=== PATIENT | male | born 1930 | race African-American/Black ===

== ENCOUNTER → 2016-10-14 | Outpatient (CLI) | payer MEDICARE, OTHER | LOC: OD 08:55 | PROVIDERS: ATTEND Urology | DX: N40.0 Benign prostatic hyperplasia without lower urinary tract symptoms (principal) | CPT/HCPCS: 36415; 84153 ==

== ENCOUNTER → 2018-03-25 | Outpatient (CLI) | payer MEDICARE, OTHER ==
--- NOTE | 2018-03-25 16:00 | RADIOLOGY REPORT (SQ) ---
EXAM DESCRIPTION: CHEST PA/LATERAL COMPLETED DATE/TIME: 03/25/2018 3:48 pm REASON FOR STUDY: COUGH COMPARISON: 12/17/2008 EXAM PARAMETERS: NUMBER OF VIEWS: two views TECHNIQUE: Digital Frontal and Lateral radiographic views of the chest acquired. RADIATION DOSE: NA LIMITATIONS: none FINDINGS: LUNGS AND PLEURA: The lungs are hyperexpanded. There is no infiltrate or effusion. There is no mass. MEDIASTINUM AND HILAR STRUCTURES: No masses or contour abnormalities. HEART AND VASCULAR STRUCTURES: Heart size is normal. There is ectasia of the ascending aorta. BONES: No acute findings. HARDWARE: None in the chest. OTHER: No other significant finding. IMPRESSION: Chronic lung changes with no acute cardiopulmonary disease. There is ectasia of the asc ending aorta. TECHNICAL DOCUMENTATION: JOB ID: [id number] [employer]- All Rights Reserved Reading location - IP/workstation name: [email or web address]
== END ==
LOC: OD 15:31
PROVIDERS: ATTEND Family Medicine
DX: I77.819 Aortic ectasia, unspecified site (principal); R05 Cough
CPT/HCPCS: 71046

== ENCOUNTER → 2018-04-27 | Outpatient (CLI) | payer MEDICARE, OTHER ==
--- NOTE | 2018-04-27 12:30 | RADIOLOGY REPORT (SQ) ---
EXAM DESCRIPTION: CT ABD/PELVIS COMBO COMPLETED DATE/TIME: 04/27/2018 9:42 am REASON FOR STUDY: GROSS HEMATURIA (R31.0), BPH (N40.0), URINARY INCONTINENCE (R32) R31.0 GROSS LEO TURIA N40.0 BENIGN PROSTATIC HYPERPLASIA WITHOUT LOWER URINRY TRAC R32 UNSPECIFIED URINARY INCONTIN ENCE COMPARISON: None. TECHNIQUE: CT scan of the abdomen and pelvis performed with and without intravenous contrast, and wi thout oral contrast. Contrasted imaging performed helical scanning technique and dynamic intravenous contrast injection. Images reviewed with lung, soft tissue, and bone windows. Reconstructed coronal a nd sagittal MPR images reviewed. Delayed images for evaluation of the urinary system also acquired. A ll images stored on PACS. All CT scanners at this facility use dose modulation, iterative reconstruction, and/or weight based d osing when appropriate to reduce radiation dose to as low as reasonably achievable (ALARA). [facility]: Dose Right [facility]: CareDose [facility]: Dose Right [facility]: Teradose 4D [facility]: QuanDx CONTRAST TYPE AND DOSE: contrast/concentration: Isovue 300.00 mg/ml; Total Contrast Delivered: 98.0 ml; Total Saline Delivered: 72.0 ml RENAL FUNCTION: Creatinine- 1.7 RADIATION DOSE: CT Rad equipment meets quality standard of care and radiation dose reduction techniq ues were employed. CTDIvol: 9.0 - 9.0 mGy. DLP: 1361 mGy-cm. . LIMITATIONS: None. FINDINGS: LOWER CHEST: Mild to moderate pericardial effusion. Mild atelectasis or scar/fibrosis in the lower lobes. LIVER: Normal size. No masses. No dilated ducts. The hepatic and portal veins are patent. SPLEEN: Normal size. No focal lesions. PANCREAS: No masses. No significant calcifications. No adjacent inflammation or peripancreatic fluid collections. Pancreatic duct not dilated. GALLBLADDER: No identified stones by CT criteria. No inflammatory changes to suggest cholecystitis. ADRENAL GLANDS: No significant masses or asymmetry. RIGHT KIDNEY AND URETER: Very tiny nonobstructing calculus in the cortex of the midpole of the right kidney. No solid masses. No significant calcifications. No hydronephrosis or hydroureter. LEFT KIDNEY AND URETER: No solid masses. No significant calcifications. No hydronephrosis or hydr oureter. AORTA AND VESSELS: Atherosclerotic changes involving the abdominal aorta and branch vessels. No ane urysm. No dissection. Renal arteries, SMA, celiac without stenosis. RETROPERITONEUM: No retroperitoneal adenopathy, hemorrhage or masses. BOWEL AND PERITONEAL CAVITY: Post surgical changes with anastomotic sutures in the mid sigmoid colon . Constipation. Colonic diverticulae without evidence of diverticulitis. No free fluid . APPENDIX: Prior appendectomy. PELVIS: The prostate gland is enlarged and measures 5.4 cm in diameter. There is indentation on the base of the urinary bladder may be related to median lobe hypertrophy of the prostate gland. Questi on of a 2.5 cm soft tissue mass along the left lateral wall of the urinary bladder raising the questi on of neoplasm, axial images 69--70, series 3. Mild diffuse thickening of the urinary bladder wall. No free fluid. ABDOMINAL WALL: Prior right inguinal hernia repair. Recurrent right inguinal hernia contains a port ion of the urinary bladder and fat. Left inguinal hernia contains a loop of non-dilated small bowel, fat, and small mesenteric vessels. BONES: Degenerative changes L4-L5. OTHER: No other significant finding. IMPRESSION: 1 Prostate gland enlargement. There is indentation on the base of the urinary bladder m ay be related to median lobe hypertrophy of the prostate gland. Question of a soft tissue mass along the left lateral wall of the urinary bladder raising the question of neoplasm. Mild diffuse thicken ing of the urinary bladder wall. Correlation is definitely suggested. 2. Prior right inguinal hernia repair. Recurrent right inguinal hernia contains a portion of the ur inary bladder and fat. Left inguinal hernia contains fat, non-dilated small bowel and small mesenter ic vessels. 3 Additional findings as above. 4. Mild to moderate pericardial effusion. Correlation suggested. TECHNICAL DOCUMENTATION: JOB ID: [id number] Quality ID # [id number]: Final reports with documentation of one or more dose reduction techniques (e.g., Au tomated exposure control, adjustment of the mA and/or kV according to patient size, use of iterative reconstruction technique) 2010 [employer]- All Rights Reserved Reading location - IP/workstation name: [email or web address]
== END ==
LOC: RAD 08:51
PROVIDERS: ATTEND Urology
DX: N40.0 Benign prostatic hyperplasia without lower urinary tract symptoms (principal); R31.0 Gross hematuria; R32 Unspecified urinary incontinence
CPT/HCPCS: 74178; 82565

== ENCOUNTER → 2018-05-15 | Outpatient (CLI) | payer MEDICARE, OTHER ==
--- NOTE | 2018-05-15 14:35 | RADIOLOGY REPORT (SQ) ---
EXAM DESCRIPTION: CT CHEST WITHOUT COMPLETED DATE/TIME: 05/15/2018 2:04 pm REASON FOR STUDY: COPD (J44.9), COUGH (R05) J44.9 CHRONIC OBSTRUCTIVE PULMONARY DISEASE, UNSPECIFIE D R05 COUGH COMPARISON: Chest radiograph 03/25/2018 TECHNIQUE: CT scan performed of the chest without intravenous contrast. Images reviewed with lung, soft tissue and bone windows. Reconstructed coronal and sagittal MPR images reviewed. All images st ored on PACS. All CT scanners at this facility use dose modulation, iterative reconstruction, and/or weight based d osing when appropriate to reduce radiation dose to as low as reasonably achievable (ALARA). [facility]: Dose Right [facility]: CareDose [facility]: Dose Right [facility]: Teradose 4D [facility]: [employer] RADIATION DOSE: CT Rad equipment meets quality standard of care and radiation dose reduction techniq ues were employed. CTDIvol: 6.0 mGy. DLP: 241 mGy-cm. mGy. LIMITATIONS: No technical limitations. FINDINGS: LUNGS AND PLEURA: No masses, infiltrates, or pneumothorax. No pleural effusions or pleura l calcifications. HILAR AND MEDIASTINAL STRUCTURES: Upper mediastinal mass versus adenopathy. 5 cm AP diameter image 3 0. Smaller upper mediastinal nodes. HEART AND VASCULAR STRUCTURES: No aneurysm. There is a pericardial effusion. UPPER ABDOMEN: No significant findings. Limited exam. THYROID AND OTHER SOFT TISSUES: No masses. No adenopathy. BONES: No significant finding. HARDWARE: None in the chest. OTHER: No other significant findings. IMPRESSION: Upper mediastinal mass/adenopathy. Pericardial effusion. TECHNICAL DOCUMENTATION: JOB ID: [id number] Quality ID # [id number]: Final reports with documentation of one or more dose reduction techniques (e.g., Au tomated exposure control, adjustment of the mA and/or kV according to patient size, use of iterative reconstruction technique) 2010 [employer]- All Rights Reserved Reading location - IP/workstation name: [email or web address]
== END ==
LOC: RAD 13:10
PROVIDERS: ATTEND Family Medicine
DX: J44.9 Chronic obstructive pulmonary disease, unspecified (principal); R05 Cough
CPT/HCPCS: 71250

== ENCOUNTER → 2018-06-09 | Outpatient (CLI) | payer MEDICARE, OTHER ==
--- NOTE | 2018-06-10 08:50 | RADIOLOGY REPORT (SQ) ---
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 TECHNIQUE: Blood glucose level was verified. Above dose of FDG was injected intravenously. 2-D seg mented attenuation correction images were obtained from the base of the skull to the midthighs. Nonc ontrast CT images were obtained for attenuation correction and fusion with emission images. CT image s were performed without oral or intravenous contrast and are not sensitive for parenchymal lesions. A series of overlapping emission PET images were obtained. Images reviewed and manipulated at [facility] work station by the radiologist. Images stored on PACS. LIMITATIONS: None. FINDINGS: HEAD AND NECK: No areas of abnormal metabolic activity in the soft tissues of the head and neck. CHEST: A 5.7 x 4.8 cm mass is present in the precarinal region on axial image 89 with SUV 5.4. Mediastinal adenopathy is present as follows: Right thoracic inlet 2.4 x 1.7 cm lymph node image 62, SUV 3.4 Pretracheal 2.7 x 2.3 cm lymph node image 76, SUV 2.8 Aortopulmonary window 1.8 x 1.6 cm lymph node image 75, SUV 2.6 ABDOMEN AND PELVIS: No areas of abnormal metabolic activity in the abdomen or pelvis. Expected physi ologic activity is present in the genitourinary system and bowel. PROXIMAL LOWER EXTREMITIES: No areas of abnormal metabolic activity in the soft tissues of the lower extremities. BONES: No abnormal metabolic activity in the visualized skeleton. ADDITIONAL CT FINDINGS: Trace pericardial effusion, right inguinal hernia containing a portion of the right lateral bladder. Left inguinal hernia with nonobstructed sigmoid colon. Clips post partial s igmoid colectomy. Prostate enlarged. OTHER: Liver background activity 2.3 SUV. Blood pool background activity 1.9 SUV IMPRESSION: Malignant mediastinal adenopathy as above TECHNICAL DOCUMENTATION: JOB ID: [id number]- All Rights Reserved Reading location - IP/workstation name: [email or web address]
== END ==
LOC: RAD 16:35
PROVIDERS: ATTEND Internal Medicine
DX: C38.1 Malignant neoplasm of anterior mediastinum (principal)
CPT/HCPCS: 78815; A9552

== ENCOUNTER → 2018-10-28 | Outpatient (CLI) | payer MEDICARE, OTHER ==
--- NOTE | 2018-10-28 09:20 | RADIOLOGY REPORT (SQ) ---
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 Images reviewed with lung, soft tissue and bone windows. Reconstructed coronal and sagittal MPR images reviewed. All images st ored on PACS. All CT scanners at this facility use dose modulation, iterative reconstruction, and/or weight based d osing when appropriate to reduce radiation dose to as low as reasonably achievable (ALARA). [facility]: Dose Right [facility]: CareDose [facility]: Dose Right [facility]: Teradose 4D [facility]: [employer] RADIATION DOSE: CT Rad equipment meets quality standard of care and radiation dose reduction techniq ues were employed. CTDIvol: 6.9 mGy. DLP: 282 mGy-cm. mGy. LIMITATIONS: No technical limitations. FINDINGS: LUNGS AND PLEURA: Mild stable bilateral emphysematous changes with subpleural blebs in the apices. No consolidation or effusions. No suspicious nodules. HILAR AND MEDIASTINAL STRUCTURES: There is persistent bulky upper mediastinal adenopathy. The larges t soft tissue mass is pretracheal in location adjacent to the ascending aorta. This measures 6.0 x 4 .9 cm. It is slightly larger than noted on prior study. HEART AND VASCULAR STRUCTURES: Small pericardial effusion is again noted. UPPER ABDOMEN: No significant findings. Limited exam. THYROID AND OTHER SOFT TISSUES: No masses. No adenopathy. BONES: No significant finding. HARDWARE: None in the chest. OTHER: No other significant findings. IMPRESSION: 1. Bulky upper mediastinal adenopathy and pericardial effusion. The largest soft tissue mass has slightly increased in size and now measures 6.0 x 4.9 cm in size. TECHNICAL DOCUMENTATION: JOB ID: [id number] Quality ID # 436: Final reports with documentation of one or more dose reduction techniques (e.g., Au tomated exposure control, adjustment of the mA and/or kV according to patient size, use of iterative reconstruction technique) 2010 [employer]- All Rights Reserved Reading location - IP/workstation name: [email or web address]
== END ==
LOC: RAD 09:10
PROVIDERS: ATTEND Internal Medicine
DX: C7A.090 Malignant carcinoid tumor of the bronchus and lung (principal)
CPT/HCPCS: 71250

== ENCOUNTER → 2018-12-29 | Outpatient (CLI) | payer MEDICARE, OTHER ==
--- NOTE | 2018-12-29 10:24 | RADIOLOGY REPORT (SQ) ---
EXAM DESCRIPTION: CT SOFT TISSUE NECK WITHOUT COMPLETED DATE/TIME: 12/29/2018 9:49 am REASON FOR STUDY: CERVICAL LYMPHADENOPATHY R59.0 LOCALIZED ENLARGED LYMPH NODES COMPARISON: CT chest dated 10/28/2018. TECHNIQUE: Noncontrast scanning from skull base through lung apices with review of bone, soft tissue and lung windows. Reconstructed coronal and sagittal MPR images reviewed. All images stored on PAC S. All CT scanners at this facility use dose modulation, iterative reconstruction, and/or weight based d osing when appropriate to reduce radiation dose to as low as reasonably achievable (ALARA). [facility]: Dose Right [facility]: CareDose [facility]: Dose Right [facility]: Teradose 4D [facility]: [employer] (acquired by [employer]) RADIATION DOSE: mGy. LIMITATIONS: None. FINDINGS: SKULL BASE: Intact. MAJOR SALIVARY GLANDS: No solid or cystic masses. No inflammatory changes. LYMPHADENOPATHY: Extensive adenopathy in the upper mediastinum again seen. There are numerous large lymph nodes in the paratracheal region at the level of the aortic arch and origin of the great vessel s as well as enlarged right supraclavicular lymph nodes. The largest of the right supraclavicular ly mph nodes measures 3.6 cm. There are a few slightly enlarged lymph nodes in the left supraclavicular region measuring up to 1.4 cm. Overall the lymph nodes are unchanged in size and appearance. No ne w adenopathy. No significant cervical adenopathy. MUCOSAL MASSES OR ASYMMETRY: No mucosal masses or asymmetry. LARYNX/CORDS: No abnormal findings. LUNG APICES: Clear. 8 emphysematous changes with small bullae. BONES: Intact. Degenerative changes in the spine. THYROID: Normal size. No masses. PARANASAL SINUSES: Clear. OTHER: No other significant finding. IMPRESSION: EXTENSIVE ADENOPATHY IN THE UPPER MEDIASTINUM. SUPRACLAVICULAR ADENOPATHY, RIGHT GREATE R THAN LEFT. COMPARED TO THE PREVIOUS CT CHEST THESE LYMPH NODES APPEAR UNCHANGED IN SIZE AND APPEAR ANCE. NO NEW LYMPH NODES EVIDENT. NO SIGNIFICANT CERVICAL ADENOPATHY. TECHNICAL DOCUMENTATION: JOB ID: [id number] Quality ID # 436: Final reports with documentation of one or more dose reduction techniques (e.g., Au tomated exposure control, adjustment of the mA and/or kV according to patient size, use of iterative reconstruction technique) 2010 [employer]- All Rights Reserved Reading location - IP/workstation name: [email or web address]
== END ==
LOC: RAD 09:08
PROVIDERS: ATTEND Otolaryngology
DX: R59.0 Localized enlarged lymph nodes (principal)
CPT/HCPCS: 70490; 82565

== ENCOUNTER → 2019-01-12 | Day surgery (SDC) | payer MEDICARE, OTHER ==
[~2019-01-12] MED LIST: LIDOCAINE 1% INJ-PF (10 MG/ML) 30 ML SDV ONE
--- NOTE | 2019-01-12 15:05 | RADIOLOGY REPORT (SQ) ---
EXAM DESCRIPTION: U/S BIOPSY SUPERFIC LYMPH NODE COMPLETED DATE/TIME: 01/12/2019 2:49 pm REASON FOR STUDY: CERVICAL LYMPHADENOPATHY (R59.0) R59.0 LOCALIZED ENLARGED LYMPH NODES COMPARISON: None. TECHNIQUE: The procedure was discussed with the patient and written informed consent obtained. A ti meout was performed to confirm the procedure and patient's identity. The skin of the neck was preppe d and draped in sterile fashion and 2 cc 1% lidocaine administered for local anesthesia. Under sonographic guidance, 14 cage core biopsy was performed of the right supraclavicular left node. 2 cores were obtained. Pathology was present to verify adequate tissue sampling. Hemostasis was obt ained with direct manual compression. There were no immediate complications. LIMITATIONS: None. FINDINGS: PATHOLOGY: Pending. IMPRESSION: ULTRASOUND-GUIDED BIOPSY RIGHT SUPRACLAVICULAR LYMPH NODE. PATHOLOGY PENDING AT THE [facility] E OF DICTATION. COMMENT: Patient medication list reviewed: Yes- Quality ID# [id number]:Eligible professional attests to doc umenting in the medical record they obtained, updated, or reviewed the patient's current medications. TECHNICAL DOCUMENTATION: JOB ID: [id number] [employer]- All Rights Reserved Reading location - IP/workstation name: [email or web address]
== END ==
LOC: EDSTATUS 01-06 09:30 → RAD 12:48 → EDSTATUS 13:30
PROVIDERS: ATTEND Otolaryngology
DX: C7B.8 Other secondary neuroendocrine tumors (principal)
CPT/HCPCS: 88342 ×2; 88341 ×2; 88305 ×2; 88313 ×2; 38505; J3490

== ENCOUNTER 2019-05-21 13:37 | Inpatient (IN) | payer MEDICARE, OTHER ==
[2019-05-21 14:09] LABS: ABSOLUTE BASOPHILS # (AUTO) 0.1 10^3/uL (0.0-0.2); ABSOLUTE EOSINOPHILS # (AUTO) 0.1 10^3/uL (0.0-0.6); ABSOLUTE LYMPHOCYTES (AUTO) 1.8 10^3/uL (0.5-4.7); ABSOLUTE MONOCYTES (AUTO) 0.9 10^3/uL (0.1-1.4); ABSOLUTE NEUT (AUTO) 7.2 10^3/uL (1.7-8.2); BASOPHILS % (AUTO) 0.7 % (0-2); HEMATOCRIT 36.5 % (37.9-51.0); HEMOGLOBIN 12.3 g/dL (13.5-17.0); LYMPHOCYTES % (AUTO) 17.7 % (13-45); MEAN CORPUSCULAR HEMOGLOBIN 30.5 pg (27.0-33.4); MEAN CORPUSCULAR HGB CONC 33.8 g/dL (32.0-36.0); MEAN CORPUSCULAR VOLUME 90 fl (80-97); RED BLOOD COUNT 4.04 10^6/uL (4.35-5.55); RED CELL DISTRIBUTION WIDTH 14.6 % (11.5-14.0); SEGMENTED NEUTROPHILS % (AUTO) 71.6 % (42-78); TOTAL CELLS COUNTED % (AUTO) 100 %
[2019-05-21 14:31] LABS: PLATELET COUNT 211 10^3/uL (150-450)
[2019-05-21] MEDS ORDERED: LEVETIRACETAM 1000 MG/NACL-ISO 1,000 MG/100 ML RTUPB IV ONE (15:17)
[2019-05-21] MEDS ORDERED: DEXAMETHASONE SOD PHOS INJ 10 MG/1 ML VIAL IV ONE (15:17)
--- NOTE | 2019-05-21 15:25 | RADIOLOGY REPORT (SQ) ---
EXAM DESCRIPTION: CHEST SINGLE VIEW COMPLETED DATE/TIME: 05/21/2019 3:15 pm REASON FOR STUDY: New onset weakness COMPARISON: 12/17/2008 NUMBER OF VIEWS: One view. TECHNIQUE: Single frontal radiographic view of the chest acquired. LIMITATIONS: None. FINDINGS: LUNGS AND PLEURA: No opacities, masses or pneumothorax. No pleural effusion. MEDIASTINUM AND HILAR STRUCTURES: There is right hilar and upper mediastinal adenopathy. HEART AND VASCULAR STRUCTURES: Heart normal in size. Normal vasculature. BONES: No acute findings. HARDWARE: None in the chest. OTHER: No other significant finding. IMPRESSION: Right hilar and upper mediastinal adenopathy. TECHNICAL DOCUMENTATION: JOB ID: [id number] [employer]- All Rights Reserved Reading location - IP/workstation name: [email or web address]
--- NOTE | 2019-05-21 15:25 | RADIOLOGY REPORT (SQ) ---
EXAM DESCRIPTION: CT HEAD WITHOUT COMPLETED DATE/TIME: 05/21/2019 3:09 pm REASON FOR STUDY: New onset weakness COMPARISON: None. TECHNIQUE: Axial images acquired through the brain without intravenous contrast. Images reviewed wi th bone, brain and subdural windows. Additional sagittal and coronal reconstructions were generated. Images stored on PACS. All CT scanners at this facility use dose modulation, iterative reconstruction, and/or weight based d osing when appropriate to reduce radiation dose to as low as reasonably achievable (ALARA). [facility]: Dose Right [facility]: CareDose [facility]: Dose Right [facility]: Teradose 4D [facility]: Smart [employer] RADIATION DOSE: CT Rad equipment meets quality standard of care and radiation dose reduction techniq ues were employed. CTDIvol: 53.2 mGy. DLP: 1044 mGy-cm.mGy. LIMITATIONS: None. FINDINGS: VENTRICLES: Prominent. CEREBRUM: There is an area of increased attenuation the left parietal lobe. There is surrounding vas ogenic edema this is suspicious for hemorrhagic metastatic disease. This measures 1.9 x 1.6 cm in si ze. There is diffuse decreased attenuation throughout the periventricular white matter consistent wi th small vessel disease. CEREBELLUM: There is a hyperattenuating lesion in the left aspect of the cerebellum. This measures 2 .5 x 2.2 cm. Again metastatic lesion is thought to be most likely. There is surrounding vasogenic e odilia. Some mass effect on the 3rd ventricle. EXTRAAXIAL SPACES: Age-related involutional change. No fluid collections. No masses. ORBITS AND GLOBE: No intra- or extraconal masses. Normal contour of globe without masses. CALVARIUM: No fracture. PARANASAL SINUSES: No fluid or mucosal thickening. SOFT TISSUES: No mass or hematoma. OTHER: No other significant finding. IMPRESSION: 2 areas of high attenuation as described most consistent with hemorrhagic metastases. Diffuse cerebral atrophy and small-vessel ischemic changes. EVIDENCE OF ACUTE STROKE: NO. COMMENT: Pertinent findings on the imaging study reported as a CRITICAL RESULT to BRIAN MUSTAFA MD at15:17 on 05/21/2019. Category of Critical Result: Intracranial hemorrhage TECHNICAL DOCUMENTATION: JOB ID: [id number] Quality ID # 436: Final reports with documentation of one or more dose reduction techniques (e.g., Au tomated exposure control, adjustment of the mA and/or kV according to patient size, use of iterative reconstruction technique) 2010 [employer]- All Rights Reserved Reading location - IP/workstation name: [email or web address]
[2019-05-21] MEDS ORDERED: ACETAMINOPHEN 325 MG TABLET PO PRN (15:41)
[2019-05-21] MEDS ORDERED: DEXTROSE 50%-WATER 25 GM/50 ML DISP.SYRIN IV PRN ×2 (15:49)
[2019-05-21] MEDS ORDERED: DEXTROSE 40% GEL 15 GM TUBE PO PRN ×2 (15:49)
[2019-05-21] MEDS ORDERED: GLUCAGON,HUMAN RECOMB 1 MG INJ IM PRN (15:49)
--- NOTE | 2019-05-21 15:54 | ER Document Report ---
Entered by REGINA HUSAIN SCRIBE 05/21/19 1445 Acting as scribe for:BRIAN MUSTAFA MD ED General - General Chief Complaint: General Weakness Stated Complaint: WEAKNESS Time Seen by Provider: 05/21/19 14:28 Primary Care Provider: KERA RODNEY MD [ACTIVE STAFF] - Follow up as needed Mode of Arrival: Ambulatory Information source: Patient Notes: Patient is an 88 year old male that presents to the emergency department today with complaints of generalized weakness for the last week. at bedside states that they recently went on vacation to [place], and on 05/15 the patient stated he wasn't feeling good, that he was just going to stay at home. reports the patient slept all day, went up to go to the bathroom and on the way back fell onto the couch. states the patient has been able to walk since then due to weakness. Patient has known lung cancer which he elected not to treat. TRAVEL OUTSIDE OF THE [place] IN LAST 30 DAYS: No - Related Data Allergies/Adverse Reactions: simvastatin [From Zocor] Allergy (Verified 05/21/19 15:40) Past Medical History - General Information source: Patient - Social History Smoking Status: Former Smoker Cigarette use (# per day): No Chew tobacco use (# tins/day): No Smoking Education Provided: No Frequency of alcohol use: None Drug Abuse: None Lives with: Family Family History: Reviewed & Not Pertinent Review of Systems - Review of Systems -: Yes ROS unobtainable due to patient's medical condition - given by family at bedside Constitutional: See HPI, Weakness - generalized EENT: No symptoms reported Cardiovascular: No symptoms reported Respiratory: No symptoms reported Gastrointestinal: No symptoms reported Genitourinary: No symptoms reported Male Genitourinary: No symptoms reported Musculoskeletal: No symptoms reported Skin: No symptoms reported Hematologic/Lymphatic: No symptoms reported Neurological/Psychological: No symptoms reported -: Yes All other systems reviewed and negative Physical Exam - Vital signs Vitals: Pulse Ox 96 05/21/19 13:43 - Notes Notes: Physical Exam: General: Patient smiles to name, but stares off into space without answering questions. HEENT: Normocephalic. Atraumatic. PERRL. Extraocular movements intact. Oropharynx clear. Hearing aid on the left. Symmetrical smile. Dry mucous membranes. Tongue is coated. Neck: Supple. Non-tender. Respiratory: No respiratory distress. Clear and equal breath sounds bilaterally. Cardiovascular: Regular rate and rhythm. Abdominal: Normal Inspection. Non-tender. No distension. Normal Bowel Sounds. Back: No gross abnormalities. Extremities: Upper extremities: RUE and right tag stringer strength is normal. LUE and left tag stringer strength are weak. Lower extremities: RLE weakness, unable to hold leg off the bed. LLE strength is normal. Neurological: No facial droop. Tongue protrudes midline. Skin: Warm. Dry. Normal color. Course - Vital Signs Vital signs: Temp Pulse Resp BP Pulse Ox 98.5 F 23 H 144/85 H 95 05/21/19 13:44 05/21/19 14:01 05/21/19 14:00 05/21/19 14:01 - Laboratory Result Diagrams: 05/21/19 13:50 05/21/19 13:50 Laboratory results interpreted by me: 05/21/19 13:50 RBC 4.04 L Hgb 12.3 L Hct 36.5 L RDW 14.6 H - Diagnostic Test Radiology reviewed: Image reviewed, Reports reviewed - CT scan of the head shows 2 hemorrhagic metastases, one at the cerebellar peduncle on the left, and one in the left parietal region. - Consults Dr. 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 I personally performed the services described in the documentation, reviewed and edited the documentation which was dictated to the scribe in my presence, and it accurately records my words and actions.
[2019-05-21] MEDS ORDERED: MORPHINE SULFATE 10 MG/ML INJ IV ONE (16:16)
[2019-05-21] MEDS ORDERED: ONDANSETRON HCL INJ/PF 4 MG/2 ML SDV IV ONE (16:16)
[2019-05-21 16:17] LABS: APPEARANCE,URINE SLIGHTLY-CLOUDY; BILIRUBIN,URINE SMALL (NEGATIVE); COLOR,URINE DARK YELLOW; GLUCOSE, URINE NEGATIVE (NEGATIVE); KETONES,URINE 20 mg/dL (NEGATIVE); LEUKOCYTE ESTERASE,URINE NEGATIVE (NEGATIVE); NITRITE,URINE NEGATIVE (NEGATIVE); PROTEIN,URINE 100 mg/dL (NEGATIVE); URINE SPECIFIC GRAVITY 1.025
[2019-05-21] MEDS ORDERED: DEXAMETHASONE SOD PHOSPHATE INJ 4 MG/1 ML VIAL IV SCH (18:00)
--- NOTE | 2019-05-21 19:30 | Progress Note ---
Provider Note Provider Note: pt seen and exam in er d/w and family pt id dnr/dni plan for hospic care
[2019-05-21] MEDS ORDERED: MORPHINE SULFATE 10 MG/ML INJ IV PRN (20:18)
[2019-05-21 20:29] LABS: ABSOLUTE LYMPHOCYTES (AUTO) 0.8 10^3/uL (0.5-4.7); ABSOLUTE MONOCYTES (AUTO) 0.2 10^3/uL (0.1-1.4); ABSOLUTE NEUT (AUTO) 6.9 10^3/uL (1.7-8.2); BASOPHILS % (AUTO) 0.1 % (0-2); EOSINOPHILS % (AUTO) 0.1 % (0-6); HEMATOCRIT 30.9 % (37.9-51.0); HEMOGLOBIN 10.6 g/dL (13.5-17.0); LYMPHOCYTES % (AUTO) 9.8 % (13-45); MEAN CORPUSCULAR HEMOGLOBIN 30.8 pg (27.0-33.4); MEAN CORPUSCULAR HGB CONC 34.2 g/dL (32.0-36.0); MEAN CORPUSCULAR VOLUME 90 fl (80-97); MONOCYTES % (AUTO) 2.4 % (3-13); PLATELET COUNT 229 10^3/uL (150-450); RED BLOOD COUNT 3.43 10^6/uL (4.35-5.55); RED CELL DISTRIBUTION WIDTH 14.4 % (11.5-14.0); SEGMENTED NEUTROPHILS % (AUTO) 87.6 % (42-78); TOTAL CELLS COUNTED % (AUTO) 100 %; WHITE BLOOD COUNT 7.9 10^3/uL (4.0-10.5)
[2019-05-21 20:37] LABS: PROTHROMBIN TIME 14.3 SEC (11.4-15.4)
[2019-05-21 20:49] LABS: ALBUMIN 4.1 g/dL (3.5-5.0); ALKALINE PHOSPHATASE 63 U/L (38-126); ANION GAP 9 (5-19); ASPARTATE AMINO TRANSFERASE 53 U/L (17-59); BILIRUBIN,DIRECT 0.5 mg/dL (0.0-0.4); BILIRUBIN,TOTAL 0.9 mg/dL (0.2-1.3); BLOOD UREA NITROGEN 16 mg/dL (7-20); CALCIUM 10.1 mg/dL (8.4-10.2); CARBON DIOXIDE 25 mmol/L (22-30); CHLORIDE 101 mmol/L (98-107); CREATINE KINASE 331 U/L (55-170); GLUCOSE 113 mg/dL (75-110); POTASSIUM 4.7 mmol/L (3.6-5.0); TOTAL PROTEIN 8.3 g/dL (6.3-8.2)
[2019-05-21 21:02] LABS: CREATINE KINASE MB 4.19 ng/mL (<4.55); TROPONIN I 0.028 ng/mL
[2019-05-21] MEDS ORDERED: LEVETIRACETAM 500 MG/NACL-ISO 500 MG/100 ML RTUPB IV ONE (21:32)
[2019-05-21] MEDS: INSULIN LISPRO 100 UNIT/ML 3 ML VIAL SUBCUT SCH (21:43)
[2019-05-21] MEDS: DEXAMETHASONE SOD PHOSPHATE INJ 4 MG/1 ML VIAL IV SCH (21:55)
[2019-05-21] MEDS: LEVETIRACETAM 500 MG/NACL-ISO 500 MG/100 ML RTUPB IV SCH (21:55)
[2019-05-21] MEDS: FAMOTIDINE 20 MG TABLET PO SCH (21:56)
[2019-05-22] MEDS: DEXAMETHASONE SOD PHOSPHATE INJ 4 MG/1 ML VIAL IV SCH ×4 (03:48→22:08)
[2019-05-22 07:06] LABS: ANION GAP 13 (5-19); BLOOD UREA NITROGEN 22 mg/dL (7-20); CALCIUM 10.2 mg/dL (8.4-10.2); CARBON DIOXIDE 23 mmol/L (22-30); CHLORIDE 101 mmol/L (98-107); GLUCOSE 126 mg/dL (75-110); POTASSIUM 4.9 mmol/L (3.6-5.0)
[2019-05-22 07:40] LABS: ABSOLUTE BASOPHILS # (AUTO) 0.1 10^3/uL (0.0-0.2); ABSOLUTE LYMPHOCYTES (AUTO) 1.4 10^3/uL (0.5-4.7); ABSOLUTE MONOCYTES (AUTO) 0.3 10^3/uL (0.1-1.4); ABSOLUTE NEUT (AUTO) 6.2 10^3/uL (1.7-8.2); BASOPHILS % (AUTO) 0.6 % (0-2); HEMATOCRIT 32.8 % (37.9-51.0); HEMOGLOBIN 11.3 g/dL (13.5-17.0); MEAN CORPUSCULAR HEMOGLOBIN 31.2 pg (27.0-33.4); MEAN CORPUSCULAR HGB CONC 34.4 g/dL (32.0-36.0); MEAN CORPUSCULAR VOLUME 91 fl (80-97); MONOCYTES % (AUTO) 3.7 % (3-13); PLATELET COUNT 213 10^3/uL (150-450); RED BLOOD COUNT 3.61 10^6/uL (4.35-5.55); RED CELL DISTRIBUTION WIDTH 14.6 % (11.5-14.0); SEGMENTED NEUTROPHILS % (AUTO) 77.7 % (42-78); TOTAL CELLS COUNTED % (AUTO) 100 %
[2019-05-22] MEDS: LEVETIRACETAM 500 MG/NACL-ISO 500 MG/100 ML RTUPB IV SCH ×2 (09:09→22:08)
[2019-05-22] MEDS: INSULIN LISPRO 100 UNIT/ML 3 ML VIAL SUBCUT SCH ×4 (09:15→22:09)
[2019-05-22] MEDS: FAMOTIDINE 20 MG TABLET PO SCH ×2 (09:16→22:09)
--- NOTE | 2019-05-22 10:38 | PDOC CONSULTATION ---
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 We had offered hospice several times over the last couple months but patient was ambulatory and eating and did not feel ready for consideration of hospice. Over the last 2 to 3 days prior to admission he was confused, lethargic and brought him in. His is 87 years old, but she has been doing pretty well and is quite ambulatory and does all of her ADLs and IADLs by herself. We see her also in our oncology office for anemia. Upon presentation CT of the head was done and there was a 1.9 cm lesion in the left parietal lobe with vasogenic edema along with a 2.5 cm lesion in the cerebellum. Both consistent with metastatic disease in the brain. Past Medical History Cardiac Medical History: Reports: Hyperlipidema, Hypertension Malignancy Medical History: Reports: Lung Cancer GI Medical History: Reports: Gastroesophageal Reflux Disease Past Surgical History Past Surgical History: Reports: Other - Bronchoscopy with biopsy 2017, biopsy of right cervical lymph node 2019 Social History Lives with: Family Smoking Status: Former Smoker - Advance Directive Resuscitation Status: Do Not Resuscitate Family History Family History: Reviewed & Not Pertinent Parental Family History Reviewed: Yes Children Family History Reviewed: Yes Sibling(s) Family History Reviewed.: Yes Medication/Allergy Home Medications: Acetaminophen [Tylenol] 650 mg PO .ASDIR PRN 05/21/19 Aspirin [Adult Low Dose Aspirin EC] 81 mg PO DAILY 05/21/19 Benzonatate [Tessalon Perles 100 mg Capsule] 200 mg PO Q8HP PRN 05/21/19 Cyanocobalamin (Vitamin B-12) [Vitamin B-12] 1,000 mcg PO DAILY 05/21/19 Doxazosin Mesylate [Cardura] 8 mg PO DAILY 05/21/19 Finasteride [Proscar 5 mg Tablet] 5 mg PO DAILY 05/21/19 Hydrocodone/Acetaminophen [[place] 5-325 mg Tablet] 1 tab PO Q4HP PRN 05/21/19 Pravastatin Sodium [Pravachol] 40 mg PO DAILY 05/21/19 Ranitidine HCl [Zantac] 150 mg PO BID 05/21/19 Sodium Bicarbonate [Sodium Bicarbonate 650 mg Tablet] 650 mg PO DAILY 05/21/19 Allergies/Adverse Reactions: simvastatin [From Zocor] Allergy (Verified 05/21/19 15:40) Review of Systems ROS unobtainable: Due to mental status Physical Exam Vital Signs: Temp Pulse Resp BP Pulse Ox 97.8 F 68 16 107/57 L 94 05/22/19 07:45 05/22/19 07:45 05/22/19 07:45 05/22/19 07:45 05/22/19 07:45 Intake & Output 05/21/19 05/22/19 05/23/19 06:59 06:59 06:59 Intake Total 250 100 Balance 250 100 Weight 77.1 kg General appearance: PRESENT: hard of hearing Mouth exam: PRESENT: dry mucosa Neck exam: ABSENT: carotid bruit, JVD, lymphadenopathy, thyromegaly Respiratory exam: PRESENT: clear to auscultation lynsey. ABSENT: rales, rhonchi, wheezes Cardiovascular exam: PRESENT: RRR. ABSENT: diastolic murmur, rubs, systolic murmur GI/Abdominal exam: PRESENT: normal bowel sounds, soft. ABSENT: distended, guarding, mass, organolmegaly, rebound, tenderness Rectal exam: PRESENT: deferred Neurological exam: PRESENT: altered Results Laboratory Results: 05/22/19 07:36 05/22/19 06:18 05/21/19 05/21/19 05/21/19 13:50 13:50 15:56 WBC 10.0 RBC 4.04 L Hgb 12.3 L Hct 36.5 L MCV 90 MCH 30.5 MCHC 33.8 RDW 14.6 H Plt Count 211 Seg Neutrophils % 71.6 Sodium Cancelled Potassium Cancelled Chloride Cancelled Carbon Dioxide Cancelled Anion Gap Cancelled BUN Cancelled Creatinine Cancelled Est GFR ( Amer) Cancelled Est GFR (Non-Af Amer) Cancelled Glucose Cancelled Calcium Cancelled Magnesium Total Bilirubin Cancelled AST Cancelled Alkaline Phosphatase Cancelled Total Protein Cancelled Albumin Cancelled Urine Color DARK YELLOW Urine Appearance SLIGHTLY-CLOUDY Urine pH 5.0 Ur Specific [place] 1.025 Urine Protein 100 H Urine Glucose (UA) NEGATIVE Urine Ketones 20 H Urine Blood NEGATIVE Urine Nitrite NEGATIVE Ur Leukocyte Esterase NEGATIVE Urine WBC (Auto) 1 Urine RBC (Auto) 2 05/21/19 05/21/19 05/22/19 20:18 20:18 06:18 WBC 7.9 Cancelled RBC 3.43 L Cancelled Hgb 10.6 L Cancelled Hct 30.9 L Cancelled MCV 90 Cancelled MCH 30.8 Cancelled MCHC 34.2 Cancelled RDW 14.4 H Cancelled Plt Count 229 Cancelled Seg Neutrophils % 87.6 H Cancelled Sodium 135.1 L Potassium 4.7 Chloride 101 Carbon Dioxide 25 Anion Gap 9 BUN 16 Creatinine 1.14 Est GFR ( Amer) > 60 Est GFR (Non-Af Amer) Glucose 113 H Calcium 10.1 Magnesium 1.9 Total Bilirubin 0.9 AST 53 Alkaline Phosphatase 63 Total Protein 8.3 H Albumin 4.1 Urine Color Urine Appearance Urine pH Ur Specific [place] Urine Protein Urine Glucose (UA) Urine Ketones Urine Blood Urine Nitrite Ur Leukocyte Esterase Urine WBC (Auto) Urine RBC (Auto) 05/22/19 05/22/19 06:18 07:36 WBC 8.0 RBC 3.61 L Hgb 11.3 L Hct 32.8 L MCV 91 MCH 31.2 MCHC 34.4 RDW 14.6 H Plt Count 213 Seg Neutrophils % 77.7 Sodium 137.1 Potassium 4.9 Chloride 101 Carbon Dioxide 23 Anion Gap 13 BUN 22 H Creatinine 1.40 H Est GFR ( Amer) 58 L Est GFR (Non-Af Amer) Glucose 126 H Calcium 10.2 Magnesium Total Bilirubin AST Alkaline Phosphatase Total Protein Albumin Urine Color Urine Appearance Urine pH Ur Specific [place] Urine Protein Urine Glucose (UA) Urine Ketones Urine Blood Urine Nitrite Ur Leukocyte Esterase Urine WBC (Auto) Urine RBC (Auto) 05/21/19 05/21/19 20:18 20:18 Creatine Kinase 331 H CK-MB (CK-2) 4.19 Troponin I 0.028 Impressions: Chest X-Ray 05/21/19 14:46 IMPRESSION: Right hilar and upper mediastinal adenopathy. Head CT 05/21/19 14:46 IMPRESSION: 2 areas of high attenuation as described most consistent with hemorrhagic metastases. Diffuse cerebral atrophy and small-vessel ischemic changes. EVIDENCE OF ACUTE STROKE: NO. Status: Image reviewed by me Assessment & Plan - Diagnosis (1) Small cell carcinoma of lung Is this a current diagnosis for this admission?: Yes Plan: Unfortunately with brain metastasis, not candidate for therapy. I contacted Emma from [facility] who will be talking with his , Staci, to see if home hospice is possible. (2) Malignant neoplasm metastatic to brain Is this a current diagnosis for this admission?: Yes Plan: Continue with steroids for now, I do not believe patient is a candidate for even whole brain radiation palliatively, would recommend hospice and I discussed this with his who is agreeable for this. We will have hospice meet with them today or tomorrow and then hopefully set up discharge if possible by Friday. - Time Time Spent: Greater than 70 Minutes - Inpatient Certification Based on my medical assessment, after consideration of the patient's comorbidities, presenting symptoms, or acuity I expect that the services needed warrant INPATIENT care.: Yes Medical Necessity: Need for Neurological Checks, Risk of Complication if Not Cared For in Hospital
--- NOTE | 2019-05-22 12:17 | PDOC PROGRESS REPORT ---
Subjective Progress Note for:: 05/22/19 Subjective:: Patient was not able to meaningfully contribute to his health history and status at the time of my bedside visit. Close family friend reported that patient has not been able to attend his monthly men's breakfast meeting due to recent deterioration in his health. Patient remain DNI and DNR. Nursing staff reported non-sustained run of VT without demonstrable symptoms. Reason For Visit: CARCINOID TUMOR,BRAIN METAST Physical Exam Vital Signs: Temp Pulse Resp BP Pulse Ox 97.8 F 68 16 107/57 L 94 05/22/19 07:45 05/22/19 07:45 05/22/19 07:45 05/22/19 07:45 05/22/19 07:45 Intake & Output 05/21/19 05/22/19 05/23/19 06:59 06:59 06:59 Intake Total 250 100 Balance 250 100 Weight 77.1 kg General appearance: PRESENT: no acute distress Head exam: PRESENT: atraumatic, normocephalic Eye exam: PRESENT: conjunctiva pink. ABSENT: scleral icterus Ear exam: PRESENT: normal external ear exam Mouth exam: PRESENT: dry mucosa Respiratory exam: PRESENT: decreased breath sounds Cardiovascular exam: PRESENT: RRR. ABSENT: diastolic murmur, rubs, systolic murmur Vascular exam: ABSENT: pallor GI/Abdominal exam: PRESENT: normal bowel sounds, soft. ABSENT: tenderness Extremities exam: PRESENT: pedal edema Musculoskeletal exam: PRESENT: deformity - due to multiple joints involvement with arthritis Neurological exam: PRESENT: altered - with right side neglect, oriented to person Skin exam: PRESENT: dry, warm Results Laboratory Results: 05/22/19 07:36 05/22/19 06:18 05/21/19 05/21/19 05/21/19 13:50 13:50 15:56 WBC 10.0 RBC 4.04 L Hgb 12.3 L Hct 36.5 L MCV 90 MCH 30.5 MCHC 33.8 RDW 14.6 H Plt Count 211 Seg Neutrophils % 71.6 Sodium Cancelled Potassium Cancelled Chloride Cancelled Carbon Dioxide Cancelled Anion Gap Cancelled BUN Cancelled Creatinine Cancelled Est GFR ( Amer) Cancelled Est GFR (Non-Af Amer) Cancelled Glucose Cancelled Calcium Cancelled Magnesium Total Bilirubin Cancelled AST Cancelled Alkaline Phosphatase Cancelled Total Protein Cancelled Albumin Cancelled Urine Color DARK YELLOW Urine Appearance SLIGHTLY-CLOUDY Urine pH 5.0 Ur Specific [place] 1.025 Urine Protein 100 H Urine Glucose (UA) NEGATIVE Urine Ketones 20 H Urine Blood NEGATIVE Urine Nitrite NEGATIVE Ur Leukocyte Esterase NEGATIVE Urine WBC (Auto) 1 Urine RBC (Auto) 2 05/21/19 05/21/19 05/22/19 20:18 20:18 06:18 WBC 7.9 Cancelled RBC 3.43 L Cancelled Hgb 10.6 L Cancelled Hct 30.9 L Cancelled MCV 90 Cancelled MCH 30.8 Cancelled MCHC 34.2 Cancelled RDW 14.4 H Cancelled Plt Count 229 Cancelled Seg Neutrophils % 87.6 H Cancelled Sodium 135.1 L Potassium 4.7 Chloride 101 Carbon Dioxide 25 Anion Gap 9 BUN 16 Creatinine 1.14 Est GFR ( Amer) > 60 Est GFR (Non-Af Amer) Glucose 113 H Calcium 10.1 Magnesium 1.9 Total Bilirubin 0.9 AST 53 Alkaline Phosphatase 63 Total Protein 8.3 H Albumin 4.1 Urine Color Urine Appearance Urine pH Ur Specific [place] Urine Protein Urine Glucose (UA) Urine Ketones Urine Blood Urine Nitrite Ur Leukocyte Esterase Urine WBC (Auto) Urine RBC (Auto) 05/22/19 05/22/19 06:18 07:36 WBC 8.0 RBC 3.61 L Hgb 11.3 L Hct 32.8 L MCV 91 MCH 31.2 MCHC 34.4 RDW 14.6 H Plt Count 213 Seg Neutrophils % 77.7 Sodium 137.1 Potassium 4.9 Chloride 101 Carbon Dioxide 23 Anion Gap 13 BUN 22 H Creatinine 1.40 H Est GFR ( Amer) 58 L Est GFR (Non-Af Amer) Glucose 126 H Calcium 10.2 Magnesium Total Bilirubin AST Alkaline Phosphatase Total Protein Albumin Urine Color Urine Appearance Urine pH Ur Specific [place] Urine Protein Urine Glucose (UA) Urine Ketones Urine Blood Urine Nitrite Ur Leukocyte Esterase Urine WBC (Auto) Urine RBC (Auto) 05/21/19 05/21/19 20:18 20:18 Creatine Kinase 331 H CK-MB (CK-2) 4.19 Troponin I 0.028 Impressions: Chest X-Ray 05/21/19 14:46 IMPRESSION: Right hilar and upper mediastinal adenopathy. Head CT 05/21/19 14:46 IMPRESSION: 2 areas of high attenuation as described most consistent with hemorrhagic metastases. Diffuse cerebral atrophy and small-vessel ischemic changes. EVIDENCE OF ACUTE STROKE: NO. Assessment & Plan - Diagnosis (1) Weakness Is this a current diagnosis for this admission?: Yes Plan: Continue IV fluid support. (2) Small cell carcinoma of lung Is this a current diagnosis for this admission?: Yes Plan: Maintain on DNI and DNR status. Discussed possibility of in patient facility hospice placement for further palliative care. (3) Malignant neoplasm metastatic to brain Is this a current diagnosis for this admission?: Yes Plan: Maintain on DNI and DNR status. Discussed possibility of in patient facility hospice placement for further palliative care. - Time Time Spent with patient: 25-34 minutes Medications reviewed and adjusted accordingly: Yes Anticipated discharge: Hospice Within: Other - Inpatient Certification Based on my medical assessment, after consideration of the patient's comorbidities, presenting symptoms, or acuity I expect that the services needed warrant INPATIENT care.: Yes I certify that my determination is in accordance with my understanding of Medicare's requirements for reasonable and necessary INPATIENT services [42 CFR 412.3e].: Yes Medical Necessity: Significant Comorbidiites Make Outpatient Treatment Too Risky, Need Close Monitoring Due to Risk of Patient Decompensation, Need For IV Fluids, Risk of Complication if Not Cared For in Hospital, Risk of Diagnosis Which Will Require Inpatient Eval/Care/Monitoring Post Hospital Care: D/C Logging Superintendent Documentation - Plan Summary Plan Summary: Continue current management with plan for hospice placement.
[2019-05-23] MEDS: DEXAMETHASONE SOD PHOSPHATE INJ 4 MG/1 ML VIAL IV SCH ×4 (03:52→21:22)
[2019-05-23 06:48] LABS: ABSOLUTE BASOPHILS # (AUTO) 0.1 10^3/uL (0.0-0.2); ABSOLUTE LYMPHOCYTES (AUTO) 1.1 10^3/uL (0.5-4.7); ABSOLUTE MONOCYTES (AUTO) 0.4 10^3/uL (0.1-1.4); ABSOLUTE NEUT (AUTO) 7.9 10^3/uL (1.7-8.2); BASOPHILS % (AUTO) 0.7 % (0-2); EOSINOPHILS % (AUTO) 0.1 % (0-6); HEMATOCRIT 32.1 % (37.9-51.0); HEMOGLOBIN 10.9 g/dL (13.5-17.0); MEAN CORPUSCULAR HEMOGLOBIN 30.6 pg (27.0-33.4); MEAN CORPUSCULAR HGB CONC 33.9 g/dL (32.0-36.0); MEAN CORPUSCULAR VOLUME 90 fl (80-97); MONOCYTES % (AUTO) 3.8 % (3-13); PLATELET COUNT 224 10^3/uL (150-450); RED BLOOD COUNT 3.55 10^6/uL (4.35-5.55); RED CELL DISTRIBUTION WIDTH 14.4 % (11.5-14.0); SEGMENTED NEUTROPHILS % (AUTO) 83.4 % (42-78); TOTAL CELLS COUNTED % (AUTO) 100 %; WHITE BLOOD COUNT 9.5 10^3/uL (4.0-10.5)
[2019-05-23 06:55] LABS: ANION GAP 10 (5-19); BLOOD UREA NITROGEN 33 mg/dL (7-20); CALCIUM 9.7 mg/dL (8.4-10.2); CARBON DIOXIDE 25 mmol/L (22-30); CHLORIDE 101 mmol/L (98-107); GLUCOSE 120 mg/dL (75-110); POTASSIUM 4.8 mmol/L (3.6-5.0)
[2019-05-23] MEDS: INSULIN LISPRO 100 UNIT/ML 3 ML VIAL SUBCUT SCH ×4 (09:19→21:46)
[2019-05-23] MEDS: LEVETIRACETAM 500 MG/NACL-ISO 500 MG/100 ML RTUPB IV SCH ×2 (09:21→21:22)
[2019-05-23] MEDS: FAMOTIDINE 20 MG TABLET PO SCH ×2 (09:28→21:23)
--- NOTE | 2019-05-23 17:02 | PDOC PROGRESS REPORT ---
Subjective Progress Note for:: 05/23/19 Subjective:: Patient remain on DNI/DNR status and pain management support. He was [facility] by [facility] nurse earlier today with arrangement for his discharge home tomorrow. Reason For Visit: CARCINOID TUMOR,BRAIN METAST Physical Exam Vital Signs: Temp Pulse Resp BP Pulse Ox 97.5 F 86 14 131/75 H 97 05/23/19 07:58 05/23/19 14:00 05/23/19 07:58 05/23/19 07:58 05/23/19 07:58 Intake & Output 05/22/19 05/23/19 05/24/19 06:59 06:59 06:59 Intake Total 250 610 100 Balance 250 610 100 Weight 77.1 kg 71.1 kg Physical Exam: General appearance: PRESENT: no acute distress Head exam: PRESENT: atraumatic, normocephalic Eye exam: PRESENT: conjunctiva pink. ABSENT: pallor, scleral icterus Ear exam: PRESENT: normal external ear exam Mouth exam: PRESENT: dry mucosa Respiratory exam: PRESENT: decreased breath sounds Cardiovascular exam: PRESENT: RRR. ABSENT: diastolic murmur, rubs, systolic murmur GI/Abdominal exam: PRESENT: normal bowel sounds, soft. ABSENT: tenderness Extremities exam: PRESENT: pedal edema Musculoskeletal exam: PRESENT: deformity - due to multiple joints involvement with arthritis Neurological exam: PRESENT: altered - with right side neglect, oriented to person Skin exam: PRESENT: dry, warm Results Laboratory Results: 05/23/19 06:13 05/23/19 06:13 05/23/19 05/23/19 05/23/19 05:27 06:13 06:13 WBC Cancelled 9.5 RBC Cancelled 3.55 L Hgb Cancelled 10.9 L Hct Cancelled 32.1 L MCV Cancelled 90 MCH Cancelled 30.6 MCHC Cancelled 33.9 RDW Cancelled 14.4 H Plt Count Cancelled 224 Seg Neutrophils % Cancelled 83.4 H Sodium 135.5 L Potassium 4.8 Chloride 101 Carbon Dioxide 25 Anion Gap 10 BUN 33 H Creatinine 1.31 H Est GFR ( Amer) > 60 Glucose 120 H Calcium 9.7 05/21/19 05/21/19 20:18 20:18 Creatine Kinase 331 H CK-MB (CK-2) 4.19 Troponin I 0.028 Impressions: Chest X-Ray 05/21/19 14:46 IMPRESSION: Right hilar and upper mediastinal adenopathy. Head CT 05/21/19 14:46 IMPRESSION: 2 areas of high attenuation as described most consistent with hemorrhagic metastases. Diffuse cerebral atrophy and small-vessel ischemic changes. EVIDENCE OF ACUTE STROKE: NO. Assessment & Plan - Diagnosis (1) Weakness Is this a current diagnosis for this admission?: Yes (2) Small cell carcinoma of lung Is this a current diagnosis for this admission?: Yes (3) Malignant neoplasm metastatic to brain Is this a current diagnosis for this admission?: Yes - Time Time Spent with patient: 25-34 minutes Medications reviewed and adjusted accordingly: Yes Anticipated discharge: Hospice Within: Other - Inpatient Certification Based on my medical assessment, after consideration of the patient's comorbidities, presenting symptoms, or acuity I expect that the services needed warrant INPATIENT care.: Yes I certify that my determination is in accordance with my understanding of Medicare's requirements for reasonable and necessary INPATIENT services [42 CFR 412.3e].: Yes Medical Necessity: Significant Comorbidiites Make Outpatient Treatment Too Risky, Need Close Monitoring Due to Risk of Patient Decompensation, Need for Pain Control, Risk of Complication if Not Cared For in Hospital, Risk of Diagnosis Which Will Require Inpatient Eval/Care/Monitoring Post Hospital Care: D/C Education Nurse Documentation - Plan Summary Plan Summary: Continue supportive care with pain management. Follow up on efforts for home hospice care. Patient and spouse will need significant support for home hospice to be successful due to their advance age without in-home social support network.
--- NOTE | 2019-05-23 18:35 | EKG REPORT ---
SEVERITY:- ABNORMAL ECG - SINUS RHYTHM LEFT ANTERIOR FASCICULAR BLOCK CONSIDER ANTEROSEPTAL INFARCT : Confirmed by: Russell Locke 23-May-2019 18:33:49
[2019-05-24] MEDS: DEXAMETHASONE SOD PHOSPHATE INJ 4 MG/1 ML VIAL IV SCH ×3 (04:34→15:30)
[2019-05-24 07:49] LABS: ABSOLUTE LYMPHOCYTES (AUTO) 0.7 10^3/uL (0.5-4.7); ABSOLUTE MONOCYTES (AUTO) 0.5 10^3/uL (0.1-1.4); ABSOLUTE NEUT (AUTO) 7.2 10^3/uL (1.7-8.2); HEMATOCRIT 34.1 % (37.9-51.0); LYMPHOCYTES % (AUTO) 8.7 % (13-45); MEAN CORPUSCULAR HEMOGLOBIN 31.6 pg (27.0-33.4); MEAN CORPUSCULAR VOLUME 90 fl (80-97); MONOCYTES % (AUTO) 6.3 % (3-13); PLATELET COUNT 267 10^3/uL (150-450); RED BLOOD COUNT 3.78 10^6/uL (4.35-5.55); RED CELL DISTRIBUTION WIDTH 14.8 % (11.5-14.0); TOTAL CELLS COUNTED % (AUTO) 100 %; WHITE BLOOD COUNT 8.4 10^3/uL (4.0-10.5)
--- NOTE | 2019-05-24 08:09 | PDOC PROGRESS REPORT ---
Subjective Progress Note for:: 05/24/19 Subjective:: D/C home planned today w/ hospice, pt poorly responsive Reason For Visit: CARCINOID TUMOR,BRAIN METAST Physical Exam Vital Signs: Temp Pulse Resp BP Pulse Ox 97.9 F 79 16 143/89 H 100 05/24/19 07:54 05/24/19 07:54 05/24/19 07:54 05/24/19 07:54 05/24/19 07:54 Intake & Output 05/23/19 05/24/19 05/25/19 06:59 06:59 06:59 Intake Total 610 318 Balance 610 318 Weight 71.1 kg General appearance: PRESENT: hard of hearing, thin Mouth exam: PRESENT: dry mucosa Neck exam: ABSENT: carotid bruit, JVD, lymphadenopathy, thyromegaly Respiratory exam: PRESENT: clear to auscultation lynsey. ABSENT: rales, rhonchi, wheezes Cardiovascular exam: PRESENT: RRR. ABSENT: diastolic murmur, rubs, systolic murmur GI/Abdominal exam: PRESENT: normal bowel sounds, soft. ABSENT: distended, guarding, mass, organolmegaly, rebound, tenderness Rectal exam: PRESENT: deferred Neurological exam: PRESENT: altered Results Laboratory Results: 05/24/19 06:57 05/24/19 06:57 WBC 8.4 RBC 3.78 L Hgb 12.0 L Hct 34.1 L MCV 90 MCH 31.6 MCHC 35.0 RDW 14.8 H Plt Count 267 Seg Neutrophils % 85.0 H 05/21/19 05/21/19 20:18 20:18 Creatine Kinase 331 H CK-MB (CK-2) 4.19 Troponin I 0.028 Impressions: Chest X-Ray 05/21/19 14:46 IMPRESSION: Right hilar and upper mediastinal adenopathy. Head CT 05/21/19 14:46 IMPRESSION: 2 areas of high attenuation as described most consistent with hemorrhagic metastases. Diffuse cerebral atrophy and small-vessel ischemic changes. EVIDENCE OF ACUTE STROKE: NO. Assessment & Plan - Diagnosis (1) Small cell carcinoma of lung Is this a current diagnosis for this admission?: Yes Plan: No acute events overnight, no further chemorx planned, home hospice (2) Malignant neoplasm metastatic to brain Is this a current diagnosis for this admission?: Yes Plan: No further chemo rx
[2019-05-24 08:11] LABS: ANION GAP 9 (5-19); BLOOD UREA NITROGEN 29 mg/dL (7-20); CALCIUM 9.8 mg/dL (8.4-10.2); CARBON DIOXIDE 25 mmol/L (22-30); CHLORIDE 101 mmol/L (98-107); GLUCOSE 117 mg/dL (75-110); POTASSIUM 4.6 mmol/L (3.6-5.0)
[2019-05-24] MEDS: INSULIN LISPRO 100 UNIT/ML 3 ML VIAL SUBCUT SCH ×2 (08:23→15:25)
[2019-05-24] MEDS: FAMOTIDINE 20 MG TABLET PO SCH (09:40)
[2019-05-24] MEDS: LEVETIRACETAM 500 MG/NACL-ISO 500 MG/100 ML RTUPB IV SCH (09:40)
--- NOTE | 2019-05-24 09:49 | PDOC DISCHARGE SUMMARY ---
General - Admit/Disc Date/PCP Admission Date/Primary Care Provider: 05/21/19 16:11 MITZI AVILA MD Discharge Date: 05/24/19 - Additional Information Resuscitation Status: Do Not Resuscitate Discharge Diet: As Tolerated, Regular Discharge Activity: Activity As Tolerated Home Medications: Acetaminophen [Tylenol] 650 mg PO .ASDIR PRN 05/21/19 Aspirin [Adult Low Dose Aspirin EC] 81 mg PO DAILY 05/21/19 Benzonatate [Tessalon Perles 100 mg Capsule] 200 mg PO Q8HP PRN 05/21/19 Cyanocobalamin (Vitamin B-12) [Vitamin B-12] 1,000 mcg PO DAILY 05/21/19 Doxazosin Mesylate [Cardura] 8 mg PO DAILY 05/21/19 Finasteride [Proscar 5 mg Tablet] 5 mg PO DAILY 05/21/19 Hydrocodone/Acetaminophen [[place] 5-325 mg Tablet] 1 tab PO Q4HP PRN 05/21/19 Pravastatin Sodium [Pravachol] 40 mg PO DAILY 05/21/19 Ranitidine HCl [Zantac] 150 mg PO BID 05/21/19 Sodium Bicarbonate [Sodium Bicarbonate 650 mg Tablet] 650 mg PO DAILY 05/21/19 History of Present Illness History of Present Illness: JESSICA BARRETT is a 88 year old male This is a 88-year-old male's with a history of the small cell carcinoma history of the carcinoid tumor presented the emergency department with altered mental status and patients diagnosed with the brain metastatic disease Very extensive discussions with the oncology patient is not a candidate for any aggressive therapy and patient's already refused in the past discussed with the patient's and other family member and patient was put on hospice and comfort care Hospital Course Hospital Course: This 88-year-old male's presented to the emergency department altered mental status and patient CT of the head was consistent with the metastatic disease coming from the small cell carcinoma with advanced age advanced disease patient is already refused further treatment in the past oncology was consulted and suggest the mostly hospice comfort care and discussed with the family and patient's discharge home with the hospice Physical Exam Vital Signs: Temp Pulse Resp BP Pulse Ox 97.9 F 79 16 143/89 H 100 05/24/19 07:54 05/24/19 07:54 05/24/19 07:54 05/24/19 07:54 05/24/19 07:54 Intake & Output 05/23/19 05/24/19 05/25/19 06:59 06:59 06:59 Intake Total 610 368 Balance 610 368 Weight 71.1 kg 74.2 kg General appearance: PRESENT: no acute distress, well-developed, well-nourished Head exam: PRESENT: atraumatic, normocephalic Eye exam: PRESENT: conjunctiva pink, EOMI, PERRLA. ABSENT: scleral icterus Ear exam: PRESENT: normal external ear exam Mouth exam: PRESENT: moist, tongue midline Neck exam: PRESENT: full ROM. ABSENT: carotid bruit, JVD, lymphadenopathy, thyromegaly Respiratory exam: PRESENT: clear to auscultation lynsey Cardiovascular exam: PRESENT: RRR. ABSENT: diastolic murmur, rubs, systolic murmur Pulses: PRESENT: normal dorsalis pedis pul, +2 pedal pulses bilateral Vascular exam: PRESENT: normal capillary refill GI/Abdominal exam: PRESENT: normal bowel sounds, soft. ABSENT: distended, guarding, mass, organolmegaly, rebound, tenderness Rectal exam: PRESENT: deferred Neurological exam: PRESENT: alert, awake, oriented to person. ABSENT: motor sensory deficit Psychiatric exam: PRESENT: appropriate affect, normal mood. ABSENT: homicidal ideation, suicidal ideation Skin exam: PRESENT: dry, intact, warm. ABSENT: cyanosis, rash Results Laboratory Results: 05/24/19 06:57 05/24/19 06:57 05/24/19 05/24/19 06:57 06:57 WBC 8.4 RBC 3.78 L Hgb 12.0 L Hct 34.1 L MCV 90 MCH 31.6 MCHC 35.0 RDW 14.8 H Plt Count 267 Seg Neutrophils % 85.0 H Sodium 135.1 L Potassium 4.6 Chloride 101 Carbon Dioxide 25 Anion Gap 9 BUN 29 H Creatinine 1.21 Est GFR ( Amer) > 60 Glucose 117 H Calcium 9.8 05/21/19 05/21/19 20:18 20:18 Creatine Kinase 331 H CK-MB (CK-2) 4.19 Troponin I 0.028 Impressions: Chest X-Ray 05/21/19 14:46 IMPRESSION: Right hilar and upper mediastinal adenopathy. Head CT 05/21/19 14:46 IMPRESSION: 2 areas of high attenuation as described most consistent with hemorrhagic metastases. Diffuse cerebral atrophy and small-vessel ischemic changes. EVIDENCE OF ACUTE STROKE: NO. Qualifiers - * PATIENT BEING DISCHARGED WITH ANY OF THE FOLLOWING DIAGNOSIS: No Acute Heart Failure - Is this a Heart Failure Patient?: No Plan Time Spent: Greater than 30 Minutes - Patient is discharged with the hospice care due to the small cell carcinoma with the brain metastatic disease with a life expectancy is less than 6-month
[2019-05-24 15:57] VITALS: BP 105/60
== END 2019-05-24 16:45 | disposition hospice, home (50) | DRG 844 ==
LOC: ER 13:37 → EH 16:11 → 3S 18:59
PROVIDERS: ADMIT Family Medicine; ATTEND Family Medicine
DX: C7B.09 Secondary carcinoid tumors of other sites (principal); C7A.090 Malignant carcinoid tumor of the bronchus and lung; Z66 Do not resuscitate; E78.5 Hyperlipidemia, unspecified; I10 Essential (primary) hypertension; K21.9 Gastro-esophageal reflux disease without esophagitis; Z79.899 Other long term (current) drug therapy; Z87.891 Personal history of nicotine dependence; Z88.8 Allergy status to other drugs, medicaments and biological substances
CPT/HCPCS: 36415; 70450; 71045; 80048; 80053; 81001; 82550; 82553; 82962; 83735; 84484; 85025; 85610; 93005; 93010; 96374; 99291; J1100; J1953; J2270; J2405